=== PATIENT | male | born 1960 | race Caucasian/White ===

== ENCOUNTER 2017-07-06 13:50 | Emergency (ER) | payer MEDICAID ==
[~2017-07-06] VITALS: Ht 167.6 cm; Wt 110.9 kg
[~2017-07-06 13:50] MED LIST: ACET-2119 PO; ALBU6.7H INH; GUAI120015 PO; HYDR12.5 PO; HYDR12.522 PO; IBUP-1985 PO; IBUP-1986 PO; LISI-600 PO; MECL-111 PO; OXCA300T PO
[2017-07-06 14:58] VITALS: BP 180/85
== END 2017-07-06 15:00 | disposition home or self-care (01) ==
LOC: ER 13:51
DX: B35.1 Tinea unguium (principal); I10 Essential (primary) hypertension; E78.00 Pure hypercholesterolemia, unspecified; R46.0 Very low level of personal hygiene; Z79.899 Other long term (current) drug therapy
CPT/HCPCS: 99281

== ENCOUNTER → 2017-07-20 | Emergency (ER) | payer MEDICAID ==
[~2017-07-20] VITALS: Ht 170.2 cm; Wt 107.9 kg
[~2017-07-20] MED LIST changes: +AZIT-57 PO
[2017-07-20 15:06] VITALS: BP 168/103
== END | disposition home or self-care (01) ==
LOC: ER 12:58
DX: H66.92 Otitis media, unspecified, left ear (principal); J11.1 Influenza due to unidentified influenza virus with other respiratory manifestations; E78.00 Pure hypercholesterolemia, unspecified; I10 Essential (primary) hypertension
CPT/HCPCS: 71046; 99284

== ENCOUNTER 2017-09-26 13:15 | Emergency (ER) | payer MEDICAID ==
[~2017-09-26] VITALS: Ht 167.6 cm; Wt 103.7 kg
[~2017-09-26 13:15] MED LIST changes: -AZIT-57 PO
[2017-09-26 14:46] LABS: BASOPHILS % (AUTO) 0.4 % (0-1); EOSINOPHILS % (AUTO) 0.8 % (0-6); HEMATOCRIT 41.6 % (42.0-52.0); HEMOGLOBIN 14.6 g/dl (14.0-17.9); LYMPHOCYTES # (AUTO) 1.2 X10'3 (1.1-4.8); LYMPHOCYTES % (AUTO) 27.4 % (21-51); MEAN CORPUSCULAR HEMOGLOBIN 32.4 PG (27.0-31.0); MEAN CORPUSCULAR HGB CONC 35.1 % (33.0-36.5); MEAN CORPUSCULAR VOLUME 92.2 FL (78-98); MEAN PLATELET VOLUME 7.3 FL (7.4-10.4); MONOCYTES # (AUTO) 0.3 X10'3 (0-0.9); MONOCYTES % (AUTO) 8.1 % (2-12); NEUTROPHILS # (AUTO) 2.7 X10'3 (1.8-7.7); NEUTROPHILS % (AUTO) 63.3 % (42-75); PLATELET COUNT 155 X10'3 (140-440); RED BLOOD COUNT 4.51 X10'6 (4.70-6.10); RED CELL DISTRIBUTION WIDTH 13.7 % (11.5-14.5); WHITE BLOOD COUNT 4.3 X10'3 (4.5-11.0)
[2017-09-26 14:54] LABS: PROTHROMBIN TIME 10.4 SECONDS (9.0-12.0)
[2017-09-26 15:00] LABS: ALANINE AMINOTRANSFERASE 40 U/L (12-78); ALBUMIN/GLOBULIN RATIO 1.1 (1.1-1.5); ALKALINE PHOSPHATASE 84 IU/L (46-116); ANION GAP 11 (8-16); ASPARTATE AMINO TRANSFERASE 23 U/L (10-37); BILIRUBIN,TOTAL 1.3 MG/DL (0.1-1.0); BLOOD UREA NITROGEN 16 MG/DL (7-18); CALCIUM 8.9 MG/DL (8.5-10.1); CHLORIDE 103 MMOL/L (99-107); CREATININE 1.45 MG/DL (0.60-1.10); GLUCOSE 145 MG/DL (70-104); POTASSIUM 3.8 MMOL/L (3.5-5.1); SODIUM 141 MMOL/L (135-145); TOTAL CARBON DIOXIDE 26.7 MMOL/L (24-32); TOTAL PROTEIN 7.7 G/DL (6.4-8.2); eGFR 50 ML/MIN
[2017-09-26 15:23] VITALS: BP 156/93
[2017-09-26] MEDS ORDERED: ONDA4TAB6 PO (15:32)
[2017-09-26 16:03] LABS: CLARITY,URINE CLEAR (Clear); COLOR,URINE YELLOW (Yellow); GLUCOSE, URINE NEGATIVE (Neg); KETONES,URINE NEGATIVE (Neg); LEUKOCYTE ESTERASE ,URINE NEGATIVE (Neg); NITRITES, URINE NEGATIVE (Neg); OCCULT BLOOD,URINE NEGATIVE (Neg); PROTEIN,URINE 100 mg/dl (Neg); UROBILINOGEN,URINE 0.2 E.U/dL (0.2-1.0)
[2017-09-26 16:13] LABS: UA COLLECTION TYPE CLN CATCH MIDSTREAM
[2017-09-26 16:15] LABS: BACTERIA,URINE NONE SEEN /HPF (Neg); RBC,URINE 0-2 /HPF (0-2); RENAL CELLS, URINE FEW /HPF; SQUAMOUS EPITHELIAL CELL,UR FEW /LPF (FEW); WBC,URINE 0-4 /HPF (0-4)
== END 2017-09-26 15:53 | disposition home or self-care (01) ==
LOC: ER 13:15
DX: A09 Infectious gastroenteritis and colitis, unspecified (principal); I10 Essential (primary) hypertension; E78.00 Pure hypercholesterolemia, unspecified; Z79.899 Other long term (current) drug therapy; Z87.891 Personal history of nicotine dependence
CPT/HCPCS: 36415; 80053; 81001; 85025; 85610; 99284

== ENCOUNTER 2017-11-20 17:13 | Emergency (ER) | payer MEDICAID ==
[~2017-11-20 17:13] MED LIST changes: +ONDA4TAB6 PO
[2017-11-20] MEDS ORDERED: DOXY100C43 PO ×2 (20:27→20:34)
[2017-11-20] MEDS ORDERED: NAPR-1154 PO ×2 (20:27→20:34)
== END 2017-11-20 18:03 | disposition left against medical advice (07) ==
LOC: ER 17:13
DX: M79.673 Pain in unspecified foot (principal); Z53.21 Procedure and treatment not carried out due to patient leaving prior to being seen by health care provider

== ENCOUNTER 2017-11-20 19:08 | Emergency (ER) | payer MEDICAID ==
[~2017-11-20] VITALS: Ht 167.6 cm; Wt 97.7 kg
[2017-11-20 19:13] VITALS: BP 151/97
[2017-11-20] MEDS ORDERED: DOXY100C43 PO ×2 (20:27→20:34)
[2017-11-20] MEDS ORDERED: NAPR-1154 PO ×2 (20:27→20:34)
== END 2017-11-20 21:20 | disposition home or self-care (01) ==
LOC: ER 19:08
DX: T69.022D Immersion foot, left foot, subsequent encounter (principal); T69.021D Immersion foot, right foot, subsequent encounter; E78.00 Pure hypercholesterolemia, unspecified; I10 Essential (primary) hypertension; Z79.899 Other long term (current) drug therapy
CPT/HCPCS: 99283

== ENCOUNTER 2018-04-03 20:13 | Emergency (ER) | payer MEDICAID ==
[~2018-04-03] VITALS: Ht 170.2 cm; Wt 100.5 kg
[~2018-04-03 20:13] MED LIST changes: +DOXY100C43 PO; +NAPR-1154 PO; -OXCA300T PO; +OXCA300T16 PO
[2018-04-03] MEDS ORDERED: bacitracin 15gm ointment TP ONE (20:55)
== END 2018-04-03 21:14 | disposition home or self-care (01) ==
LOC: ER 20:13
DX: S90.821A Blister (nonthermal), right foot, initial encounter (principal); E78.00 Pure hypercholesterolemia, unspecified; I10 Essential (primary) hypertension; Z79.899 Other long term (current) drug therapy; X58.XXXA Exposure to other specified factors, initial encounter; Y93.89 Activity, other specified; Y92.89 Other specified places as the place of occurrence of the external cause; Y99.8 Other external cause status
CPT/HCPCS: 99283

== ENCOUNTER → 2018-07-28 | Emergency (ER) | payer MEDICAID ==
[~2018-07-28] VITALS: Ht 167.6 cm; Wt 114.8 kg
[2018-07-28 09:29] VITALS: BP 204/106
== END | disposition home or self-care (01) ==
LOC: ER 09:10
DX: M79.672 Pain in left foot (principal); I10 Essential (primary) hypertension; E78.00 Pure hypercholesterolemia, unspecified
CPT/HCPCS: 99282

== ENCOUNTER 2018-09-14 04:21 | Emergency (ER) | payer MEDICAID ==
[~2018-09-14] VITALS: Ht 169.5 cm; Wt 89.1 kg
[2018-09-14 04:28] VITALS: BP 157/101
[2018-09-14] MEDS ORDERED: DOXY100C43 PO (07:09)
[2018-09-14] MEDS ORDERED: bacitracin 15gm ointment TP ONE (07:10)
== END 2018-09-14 07:23 | disposition home or self-care (01) ==
LOC: ER 04:22
DX: L60.0 Ingrowing nail (principal); I10 Essential (primary) hypertension; E78.00 Pure hypercholesterolemia, unspecified
CPT/HCPCS: 99283

== ENCOUNTER 2019-02-25 08:27 | Emergency (ER) | payer MEDICAID ==
[~2019-02-25] VITALS: Ht 170.2 cm; Wt 109.1 kg
[~2019-02-25 08:27] MED LIST changes: -ALBU6.7H INH; +ALBU6.7H9 INH
[2019-02-25 08:34] VITALS: BP 170/90
[2019-02-25] MEDS ORDERED: FAMO40TA7 PO (09:02)
== END 2019-02-25 09:23 | disposition home or self-care (01) ==
LOC: ER 08:28
DX: R51 Headache (principal); R12 Heartburn; E78.00 Pure hypercholesterolemia, unspecified; I10 Essential (primary) hypertension; K21.9 Gastro-esophageal reflux disease without esophagitis; F31.9 Bipolar disorder, unspecified; Z86.69 Personal history of other diseases of the nervous system and sense organs; Z87.891 Personal history of nicotine dependence; Z59.0 Homelessness; Z79.899 Other long term (current) drug therapy
CPT/HCPCS: 99282

== ENCOUNTER 2019-03-06 20:13 | Emergency (ER) | payer MEDICAID ==
[~2019-03-06] VITALS: Ht 167.6 cm; Wt 109.0 kg
[~2019-03-06 20:13] MED LIST changes: +FAMO40TA7 PO
[2019-03-06 20:23] VITALS: BP 163/88
[2019-03-06] MEDS ORDERED: CLOT15CR5 TOP (21:47)
[2019-03-06] MEDS ORDERED: CEPH250T PO (21:47)
== END 2019-03-06 22:25 | disposition home or self-care (01) ==
LOC: ER 20:15
DX: B35.8 Other dermatophytoses (principal); E78.00 Pure hypercholesterolemia, unspecified; I10 Essential (primary) hypertension; K21.9 Gastro-esophageal reflux disease without esophagitis; F31.9 Bipolar disorder, unspecified; F10.99 Alcohol use, unspecified with unspecified alcohol-induced disorder; Z86.69 Personal history of other diseases of the nervous system and sense organs; Z59.0 Homelessness; Z79.899 Other long term (current) drug therapy; Y90.9 Presence of alcohol in blood, level not specified
CPT/HCPCS: 99283

== ENCOUNTER 2019-03-17 09:49 | Emergency (ER) | payer MEDICAID ==
[~2019-03-17] VITALS: Ht 167.6 cm; Wt 109.1 kg
[~2019-03-17 09:49] MED LIST changes: +CEPH250T PO; +CLOT15CR5 TOP
[2019-03-17 10:17] VITALS: BP 159/105
[2019-03-17] MEDS ORDERED: mupirocin 2% ointment 22GM TP STA (11:59)
[2019-03-17] MEDS ORDERED: MUPI22OI30 TOP (12:20)
== END 2019-03-17 12:44 | disposition home or self-care (01) ==
LOC: ER 09:49
DX: S71.101D Unspecified open wound, right thigh, subsequent encounter (principal); E78.00 Pure hypercholesterolemia, unspecified; I10 Essential (primary) hypertension; K21.9 Gastro-esophageal reflux disease without esophagitis; F31.9 Bipolar disorder, unspecified; Z59.0 Homelessness; Z79.2 Long term (current) use of antibiotics; Z79.899 Other long term (current) drug therapy; X58.XXXD Exposure to other specified factors, subsequent encounter
CPT/HCPCS: 99283

== ENCOUNTER 2019-05-03 18:19 | Emergency (ER) | payer MEDICAID ==
[~2019-05-03] VITALS: Ht 167.6 cm; Wt 101.0 kg
[~2019-05-03 18:19] MED LIST changes: -CEPH250T PO
[2019-05-03 18:21] VITALS: BP 218/109
[2019-05-03] MEDS ORDERED: IBUP-1984 PO (20:03)
[2019-05-03] MEDS ORDERED: CYCL-1 PO (20:03)
== END 2019-05-03 20:19 | disposition home or self-care (01) ==
LOC: ER 18:19
DX: G89.29 Other chronic pain (principal); M54.5 Low back pain; E78.00 Pure hypercholesterolemia, unspecified; I10 Essential (primary) hypertension; K21.9 Gastro-esophageal reflux disease without esophagitis; F31.9 Bipolar disorder, unspecified
CPT/HCPCS: 99283

== ENCOUNTER 2019-06-19 08:29 | Emergency (ER) | payer MEDICAID ==
[~2019-06-19] VITALS: Ht 167.6 cm; Wt 113.6 kg
[~2019-06-19 08:29] MED LIST changes: +CYCL-1 PO
[2019-06-19 08:35] VITALS: BP 175/94
[2019-06-19] MEDS ORDERED: LIDOcaine 1% W/epiNEPHrine 1:200,000 10ml vial IJ ONE (08:55)
[2019-06-19] MEDS ORDERED: SULF1TAB49 PO (09:15)
== END 2019-06-19 09:31 | disposition home or self-care (01) ==
LOC: ER 08:30
DX: L02.415 Cutaneous abscess of right lower limb (principal); E78.00 Pure hypercholesterolemia, unspecified; I10 Essential (primary) hypertension; K21.9 Gastro-esophageal reflux disease without esophagitis; F31.9 Bipolar disorder, unspecified; F10.99 Alcohol use, unspecified with unspecified alcohol-induced disorder; Z86.69 Personal history of other diseases of the nervous system and sense organs; Z59.0 Homelessness; Z79.899 Other long term (current) drug therapy; Y90.9 Presence of alcohol in blood, level not specified
CPT/HCPCS: 96374; 99283

== ENCOUNTER 2019-07-19 14:00 | Emergency (ER) | payer MEDICAID ==
[~2019-07-19] VITALS: Ht 170.2 cm; Wt 118.0 kg
[~2019-07-19 14:00] MED LIST changes: -MECL-111 PO; +MECL-159 PO
[2019-07-19 14:47] LABS: BASOPHILS % (AUTO) 0.3 % (0-1); EOSINOPHILS % (AUTO) 0.4 % (0-6); HEMATOCRIT 40.9 % (42.0-52.0); HEMOGLOBIN 14.2 g/dl (14.0-17.9); LYMPHOCYTES # (AUTO) 1.6 X10'3 (1.1-4.8); LYMPHOCYTES % (AUTO) 18.9 % (21-51); MEAN CORPUSCULAR HEMOGLOBIN 32.2 PG (27.0-31.0); MEAN CORPUSCULAR HGB CONC 34.6 g/dL (33.0-36.5); MEAN CORPUSCULAR VOLUME 92.9 FL (78-98); MEAN PLATELET VOLUME 7.2 FL (7.4-10.4); MONOCYTES # (AUTO) 0.5 X10'3 (0-0.9); MONOCYTES % (AUTO) 5.6 % (2-12); NEUTROPHILS # (AUTO) 6.5 X10'3 (1.8-7.7); NEUTROPHILS % (AUTO) 74.8 % (42-75); PLATELET COUNT 219 X10'3 (140-440); RED BLOOD COUNT 4.41 X10'6 (4.70-6.10); RED CELL DISTRIBUTION WIDTH 13.5 % (11.5-14.5); WHITE BLOOD COUNT 8.6 X10'3 (4.5-11.0)
[2019-07-19 14:54] LABS: ALANINE AMINOTRANSFERASE 49 U/L (12-78); ALBUMIN 3.9 G/DL (3.4-5.0); ALKALINE PHOSPHATASE 94 IU/L (46-116); ANION GAP 12 (8-16); ASPARTATE AMINO TRANSFERASE 25 U/L (10-37); BILIRUBIN,TOTAL 0.8 MG/DL (0.1-1.0); BLOOD UREA NITROGEN 18 MG/DL (7-18); BUN/CREATININE RATIO 12.7 (5.4-32.0); CALCIUM 8.8 MG/DL (8.5-10.1); CHLORIDE 104 MMOL/L (99-107); CREATININE 1.42 MG/DL (0.60-1.10); GLUCOSE 136 MG/DL (70-104); POTASSIUM 3.5 MMOL/L (3.5-5.1); SODIUM 141 MMOL/L (135-145); TOTAL CARBON DIOXIDE 25.1 MMOL/L (24-32); TOTAL PROTEIN 7.9 G/DL (6.4-8.2); eGFR 51 ML/MIN
[2019-07-19] MEDS ORDERED: normal saline 1000ML IV soln IVB ONE (16:05)
[2019-07-19] MEDS ORDERED: ondansetron 4mg rapidly disintigrating tab PO ONE (16:05)
[2019-07-19] MEDS ORDERED: LOPE2TAB25 PO (17:16)
[2019-07-19 17:41] VITALS: BP 162/90
== END 2019-07-19 17:37 | disposition home or self-care (01) ==
LOC: ER 14:00
DX: S00.81XA Abrasion of other part of head, initial encounter (principal); R55 Syncope and collapse; R11.2 Nausea with vomiting, unspecified; R19.7 Diarrhea, unspecified; E78.00 Pure hypercholesterolemia, unspecified; I10 Essential (primary) hypertension; K21.9 Gastro-esophageal reflux disease without esophagitis; F31.9 Bipolar disorder, unspecified; F10.99 Alcohol use, unspecified with unspecified alcohol-induced disorder; Z88.6 Allergy status to analgesic agent; Z79.899 Other long term (current) drug therapy; W18.39XA Other fall on same level, initial encounter; Y93.89 Activity, other specified; Y92.89 Other specified places as the place of occurrence of the external cause; Y99.8 Other external cause status; Y90.9 Presence of alcohol in blood, level not specified
CPT/HCPCS: 36415; 70450; 71045; 80053; 84484; 85025; 93005; 96360; 99284; J7030

== ENCOUNTER 2019-11-28 10:44 | Emergency (ER) | payer MEDICAID ==
[~2019-11-28] VITALS: Ht 170.2 cm; Wt 118.0 kg
[~2019-11-28 10:44] MED LIST changes: +CLOT15CR35 TOP; -CLOT15CR5 TOP; +LOPE2TAB25 PO
[2019-11-28 11:58] LABS: BASOPHILS # (AUTO) 0.1 X10'3 (0-0.2); BASOPHILS % (AUTO) 1.9 % (0-1); EOSINOPHILS # (AUTO) 0.1 X10'3 (0-0.9); EOSINOPHILS % (AUTO) 2.1 % (0-6); HEMATOCRIT 40.5 % (42.0-52.0); HEMOGLOBIN 13.9 g/dl (14.0-17.9); LYMPHOCYTES # (AUTO) 2.1 X10'3 (1.1-4.8); LYMPHOCYTES % (AUTO) 32.1 % (21-51); MEAN CORPUSCULAR HEMOGLOBIN 31.8 PG (27.0-31.0); MEAN CORPUSCULAR HGB CONC 34.4 g/dL (33.0-36.5); MEAN CORPUSCULAR VOLUME 92.4 FL (78-98); MEAN PLATELET VOLUME 7.8 FL (7.4-10.4); MONOCYTES # (AUTO) 0.4 X10'3 (0-0.9); MONOCYTES % (AUTO) 5.5 % (2-12); NEUTROPHILS # (AUTO) 3.8 X10'3 (1.8-7.7); NEUTROPHILS % (AUTO) 58.4 % (42-75); PLATELET COUNT 176 X10'3 (140-440); RED BLOOD COUNT 4.38 X10'6 (4.70-6.10); RED CELL DISTRIBUTION WIDTH 13.5 % (11.5-14.5); WHITE BLOOD COUNT 6.5 X10'3 (4.5-11.0)
[2019-11-28 12:22] LABS: ALANINE AMINOTRANSFERASE 33 U/L (12-78); ALBUMIN/GLOBULIN RATIO 1.1 (1.1-1.5); ALKALINE PHOSPHATASE 118 IU/L (46-116); ANION GAP 8 (8-16); ASPARTATE AMINO TRANSFERASE 30 U/L (10-37); BILIRUBIN,TOTAL 0.6 MG/DL (0.1-1.0); BLOOD UREA NITROGEN 9 MG/DL (7-18); BUN/CREATININE RATIO 6.2 (5.4-32.0); CALCIUM 9.3 MG/DL (8.5-10.1); CHLORIDE 111 MMOL/L (99-107); CREATININE 1.46 MG/DL (0.60-1.10); GLUCOSE 106 MG/DL (70-104); POTASSIUM 3.5 MMOL/L (3.5-5.1); SODIUM 146 MMOL/L (135-145); TOTAL CARBON DIOXIDE 26.7 MMOL/L (24-32); TOTAL PROTEIN 7.5 G/DL (6.4-8.2); eGFR 50 ML/MIN
[2019-11-28] MEDS ORDERED: furosemide 20MG tablet PO ONE (12:35)
[2019-11-28] MEDS ORDERED: FURO-150 PO (12:38)
[2019-11-28] MEDS ORDERED: POTA10TA19 PO (12:38)
[2019-11-28 13:17] VITALS: BP 218/124
== END 2019-11-28 12:50 | disposition home or self-care (01) ==
LOC: ER 10:45
DX: R60.0 Localized edema (principal); R06.02 Shortness of breath; E78.00 Pure hypercholesterolemia, unspecified; I10 Essential (primary) hypertension; K21.9 Gastro-esophageal reflux disease without esophagitis; F31.9 Bipolar disorder, unspecified; Z86.69 Personal history of other diseases of the nervous system and sense organs; Z79.899 Other long term (current) drug therapy; Z59.0 Homelessness; Z72.89 Other problems related to lifestyle
CPT/HCPCS: 36415; 80053; 83880; 85025; 99283